=== PATIENT | female | born 1990 | race Caucasian/White ===

== ENCOUNTER 2023-09-21 13:00 | Emergency (ER) | payer MEDICAID ==
[~2023-09-21] VITALS: Ht 160 cm; Wt 81.6 kg
[2023-09-21 13:20] VITALS: BP_SYST 114; PULSE 99; RESP 18; TEMP 97.9; O2SAT 95
[2023-09-21 14:23] LABS: BILIRUBIN,URINE NEGATIVE (NEGATIVE); BLOOD, URINE NEGATIVE (NEGATIVE); CLARITY/URINE CLEAR (CLEAR); COLOR,URINE YELLOW (YELLOW); GLUCOSE,URINE NEGATIVE (NEGATIVE); KETONES,URINE NEGATIVE (NEGATIVE); LEUKOCYTE ESTERASE ,URINE NEGATIVE (NEGATIVE); NITRITE, URINE NEGATIVE (NEGATIVE); PROTEIN URINE NEGATIVE (NEGATIVE); UROBILINOGEN,URINE 0.2 (0.2-1.0)
[2023-09-21] MEDS: KETOROLAC TROMETHAMINE 60 MG/2 ML VIAL IM ONE (14:44)
[2023-09-21 14:46] LABS: INFLUENZA TYPE A Negative (NEGATIVE); INFLUENZA TYPE B NEGATIVE (NEGATIVE)
[2023-09-21] MEDS ORDERED: ONDA-8 TL (15:41)
[2023-09-21] MEDS ORDERED: LIDO1ADH22 TP (15:41)
[2023-09-21] MEDS ORDERED: IBUP-1969 PO (15:41)
[2023-09-21 15:57] VITALS: BP_SYST 114; PULSE 99; RESP 18; TEMP 97.9; O2SAT 95
== END 2023-09-21 15:50 | disposition home or self-care (01) ==
LOC: SED 13:00
DX: M51.36 Other intervertebral disc degeneration, lumbar region (principal); A08.4 Viral intestinal infection, unspecified; Z20.822 Contact with and (suspected) exposure to COVID-19
CPT/HCPCS: 99284; 87426; 81001; 36415; 72100; 81025; 96372; 87804 ×2; J1885; 81003